=== PATIENT | female | born 1985 | race Caucasian/White ===

== ENCOUNTER 2019-07-06 21:17 | Emergency (ER) | payer OTHER ==
[~2019-07-06] VITALS: Ht 152.4 cm; Wt 122.6 kg
[~2019-07-06 21:17] MED LIST: AMOX500C2 PO; IBUP-1542 PO; PREN1TAB49 PO; TRAM50TA PO
[2019-07-06 21:21] VITALS: BP 148/89; PULSE 101; RESP 20; Ht 152.4 cm; Wt 122.6 kg
--- NOTE | 2019-07-06 21:51 | ERD ---
ER Documentation Chief Complaint Chief Complaint BILATERAL EAR PAIN X WEDNESDAY. HPI Patient is a 34-year-old female presents the ER for concerns of right ear pain for the last 5 days. Patient states she went to her doctor and she was given eardrops. Patient states the eardrops are not helping. Patient denies any fe vers, chills, nausea or vomiting. Patient states her pain is gotten worse so she is getting a headache now. Patient denies any unilateral weakness, slurred speech, difficulty ambulating. Patient has no cough, chest pain, shortness of breath or LOC. ROS All systems reviewed and are negative except as per history of present illness. Medications Home Meds Active Scripts Amoxicillin* (Amoxicillin*) 500 Mg Cap, 500 MG PO BID for 7 Days, CAP Prov:JASE العلي PA-C 07/06/19 Ibuprofen* (Motrin*) 600 Mg Tab, 600 MG PO Q6, #30 TAB Prov:JASE العلي PA-C 07/06/19 Reported Medications Vits W-Ca,Fe,Fa(<1MG) () 1 Tab Tablet, 1 TAB PO DAILY 01/04/13 Tramadol Hcl* (Ultram*) 50 Mg Tablet, PO Q8 12/12/11 Allergies Allergies: Coded Allergies: No Known Allergy (Verified , 12/12/11) PMhx/Soc Medical and Surgical Hx: pt denies Surgical Hx History of Surgery: No Anesthesia Reaction: No Hx Neurological Disorder: No Hx Respiratory Disorders: Yes (ASTHMA) Hx Cardiac Disorders: No Hx Psychiatric Problems: Yes (ANXIETY) Hx Miscellaneous Medical Probl: Yes (ANEMIA) Hx Alcohol Use: No Hx Substance Use: No Hx Tobacco Use: No FmHx Family History: No diabetes Physical Exam Vitals Vital Signs Date Temp Pulse Resp B/P (MAP) Pulse Ox O2 O2 Flow FiO2 Time Delivery Rate 07/06/19 98.0 101 20 148/89 99 21:21 (108) Physical Exam GENERAL: Well-developed, well-nourished female. Appears in no acute distress. HEAD: Normocephalic, atraumatic. EYES: Pupils are equally reactive bilaterally. EOMs grossly intact. No conjunctival erythema. ENT: Right auditory canal is erythematous and swollen. Unable to visualize TM secondary swelling. No mastoid erythema or swelling. No mastoid tenderness. Left TM appears normal. Left mastoid appears normal. Moist mucous membranes. No uvula deviation. No kissing tonsils. NECK: Supple. No meningismus. Normal range of motion of the neck. LUNG: Clear to auscultation bilaterally. No rhonchi, wheezing, rales or coarse breath sounds. HEART: Regular rate and rhythm. No murmurs, rubs or gallops. EXTREMITIES: Equal pulses bilaterally. No peripheral clubbing, cyanosis or edema. No unilateral leg swelling. NEUROLOGIC: Alert and oriented. Moving all four extremities without any difficulty. Normal speech. Steady gait. SKIN: Normal color. Warm and dry. No rashes or lesions. Results 24 hrs Current Medications Medications Dose Sig/Serjio Start Time Status Last (Trade) Ordered Route PRN Stop Time Admin Dose Reason Admin 1 tab ONCE ONCE 07/06/19 Acetaminophen PO 22:00 07/06/19 / 22:01 Hydrocodone Bitart ([place] (5/325)) Procedures/MDM MEDICAL DECISION MAKING: This is a 34-year-old female, presents to the ER for concerns of right ear pain for last 5 days.. Vital signs were reviewed. Patient was afebrile. Patient was not hypoxic. Physical exam vitals are concerning for otitis externa of the right ear. Patient had no mastoid tenderness or swelling. Given these findings, the patient's presentation is most consistent with otitis externa. Low suspicion for malignant otitis externa, acute otitis media, tympanic membrane perforation, mastoiditis, otic barotrauma, TMJ dysfunction, meningitis, strep pharyngitis. Patient was nontoxic, [id number] prior to discharge. PRESCRIPTIONS: Ibuprofen, amoxicillin DISCHARGE: At this time, patient is stable for discharge and outpatient management. I have instructed the patient to follow-up with his/her primary care physician in 1-2 days. I have discussed with the patient the possibility of needing to see a specialist for further workup and diagnostic studies if the pain persists. I have instructed the patient to promptly return to the ER at any time for any new or worsening symptoms including increased pain, fever, swelling, discharge or he aring loss. The patient and/or family expressed understanding of and agreement with this plan. All questions were answered. Home care instructions were provided. Disclaimer: Inadvertent spelling and grammatical errors are likely due to EHR/dictation software use and do not reflect on the overall quality of patient care. Also, please note that the electronic time recorded on this note does not necessarily reflect the actual time of the patient encounter. Departure Diagnosis: Primary Impression: Otitis externa of right ear Otitis externa type: unspecified type Chronicity: unspecified Qualified Codes: H60.91 - Unspecified otitis externa, right ear Condition: Fair Patient Instructions: External Ear Infection (Adult) Additional Instructions: Call your primary care doctor TOMORROW for an appointment during the next 1-2 days.See the doctor sooner or return here if your condition worsens before your appointment time. JASE العلي PA-C Jul 06, 2019 21:51
[2019-07-06] MEDS ORDERED: HYDROCODONE/APAP (5/325) TAB PO ONE (22:00)
== END 2019-07-06 22:07 | disposition home or self-care (01) ==
LOC: FTE 21:17
DX: H60.91 Unspecified otitis externa, right ear (principal); J45.909 Unspecified asthma, uncomplicated
CPT/HCPCS: Z7502; Z7610; 99283